=== PATIENT | male | born 1980 | race Caucasian/White ===

== ENCOUNTER 2023-02-10 09:14 | Day surgery (SDC) | payer OTHER ==
[2023-02-10] VITALS (10 sets, daily range): BP systolic 130–142; BP diastolic 84–96
[~2023-02-10] VITALS: Ht 180.3 cm; Wt 92.1 kg
[2023-02-10] MEDS: cefazolin 2gm/D5W 100mL 100 ML IV ONE (07:47)
[~2023-02-10 09:14] MED LIST: NO HOME MEDS
[2023-02-10] MEDS: famotidine 20mg tablet PO ONE (10:54)
[2023-02-10] MEDS: ringers solution, lacted 1,000 ML IV SCH (10:54)
[2023-02-10 11:06] LABS: ALANINE AMINOTRANSFERASE 58 U/L (12-78); ALBUMIN/GLOBULIN RATIO 1.2 (1.1-1.5); ALKALINE PHOSPHATASE 59 IU/L (46-116); ANION GAP 8 (8-16); ASPARTATE AMINO TRANSFERASE 28 U/L (10-37); BILIRUBIN,TOTAL 0.8 MG/DL (0.1-1.0); BLOOD UREA NITROGEN 14 MG/DL (7-18); BUN/CREATININE RATIO 14.1 (10.0-20.0); CALCIUM 8.9 MG/DL (8.5-10.1); CHLORIDE 106 MMOL/L (99-107); CREATININE 0.99 MG/DL (0.60-1.10); GLUCOSE 109 MG/DL (70-104); POTASSIUM 3.9 MMOL/L (3.5-5.1); SODIUM 140 MMOL/L (135-145); TOTAL CARBON DIOXIDE 25.7 MMOL/L (24-32); TOTAL PROTEIN 7.4 G/DL (6.4-8.2); eGFR 84 ML/MIN
[2023-02-10 11:08] LABS: BASOPHILS # (AUTO) 0.1 X10'3 (0-0.2); BASOPHILS % (AUTO) 0.8 % (0-1); EOSINOPHILS # (AUTO) 0.3 X10'3 (0-0.9); EOSINOPHILS % (AUTO) 3.5 % (0-6); HEMOGLOBIN 16.3 g/dl (14.0-17.9); LYMPHOCYTES # (AUTO) 1.6 X10'3 (1.1-4.8); MEAN CORPUSCULAR HEMOGLOBIN 32.5 PG (27.0-31.0); MEAN CORPUSCULAR HGB CONC 34.7 g/dL (33.0-36.5); MEAN CORPUSCULAR VOLUME 93.5 FL (78-98); MEAN PLATELET VOLUME 8.1 FL (7.4-10.4); MONOCYTES # (AUTO) 0.9 X10'3 (0-0.9); MONOCYTES % (AUTO) 10.6 % (2-12); NEUTROPHILS # (AUTO) 5.3 X10'3 (1.8-7.7); NEUTROPHILS % (AUTO) 65.1 % (42-75); PLATELET COUNT 218 X10'3 (140-440); RED BLOOD COUNT 5.02 X10'6 (4.70-6.10); RED CELL DISTRIBUTION WIDTH 12.8 % (11.5-14.5); WHITE BLOOD COUNT 8.1 X10'3 (4.5-11.0)
[2023-02-10] MEDS: BUPIVACAINE liposomal/PF 13.3 MG/ML vial IM ONE (12:20)
[2023-02-10] MEDS: BUPIVAcaine/PF 2.5 mg/ml (0.25%) 30ml vial IJ ONE ×2 (12:20)
[2023-02-10] MEDS: LIDOcaine 1% 30ml preserv. free vial IJ ONE (12:20)
[2023-02-10] MEDS ORDERED: LIDOcaine 1% 30ml preserv. free vial ONE (12:25)
[2023-02-10] MEDS ORDERED: BUPIVAcaine/PF 2.5 mg/ml (0.25%) 30ml vial ONE ×2 (12:25→12:30)
[2023-02-10] MEDS ORDERED: BUPIVACAINE liposomal/PF 13.3 MG/ML vial IM ONE ×2 (12:30→12:32)
[2023-02-10] MEDS ORDERED: sevoflurane 250ml liquid IH ONE (12:39)
[2023-02-10] MEDS ORDERED: labetalol 20mg/4ml (5mg/ml) syringe IV ONE ×2 (12:39→13:36)
[2023-02-10] MEDS ORDERED: rocuronium 10mg/ml inj IV ONE (12:39)
[2023-02-10] MEDS ORDERED: midazolam 1 mg/ML 2ml injection ONE (12:42)
[2023-02-10] MEDS ORDERED: fentaNYL/PF 50MCG/1 ML 2ML syringe ONE ×2 (12:42→12:53)
[2023-02-10] MEDS ORDERED: neostigmine methylsulfate 1 MG/ML 10ml vial ONE (13:36)
[2023-02-10] MEDS ORDERED: ondansetron/PF 4mg/2ml inj ONE (13:36)
[2023-02-10] MEDS ORDERED: acetaminophen 1,000mg/100ml IV 100 ML IV ONE (13:36)
[2023-02-10] MEDS ORDERED: glycopyrrolate 0.2mg/ml inj ONE (13:36)
[2023-02-10] MEDS ORDERED: dexamethasone sod phosphate 4mg/ml inj. ONE (13:36)
[2023-02-10] MEDS ORDERED: LIDOcaine 2% (20mg/ml) 5ml vial ONE (13:36)
[2023-02-10] MEDS ORDERED: propofol inj 20 ML IV ONE (13:36)
--- NOTE | 2023-02-10 13:40 | NUR ---
Received from OR via BED, accompanied by Anesthesiologist and report given by Anesthesiologist. PATIENT WAKING UP, NO S/S OF PAIN, V/S WNL, SCD ON, 20G TO LUE, ABDOMEN LAP SITE CLEAN W/ NO S/S OF COMPLICATIONS
[2023-02-10] MEDS: oxyCODONE/APAP 5-325mg tablet PO PRN (14:17)
--- NOTE | 2023-02-10 14:50 | NUR ---
[id number]&[id number], DENIES PAIN, V/S WNL, SCD OFF, 20G TO LUE D/C, ABDOMEN LAP SITE CLEAN W/ NO S/S OF COMPLICATIONS. I HAVE REVIEWED D/C INSTRUCTIONS WITH PATIENT and they have verbalized understanding patient d/c home with all belongings and family gave transport home.
== END 2023-02-10 14:50 | disposition home or self-care (01) ==
LOC: PAS 09:14
PROVIDERS: ATTEND Surgery
DX: K42.9 Umbilical hernia without obstruction or gangrene (principal); Z79.899 Other long term (current) drug therapy; Z98.890 Other specified postprocedural states; F17.210 Nicotine dependence, cigarettes, uncomplicated
CPT/HCPCS: 36415; 49591; 80053; 82948; 85025; 93005; C9290; J0131; J0690; J1100; J2250; J2405; J2704; J2710; J3010; J3490; J7030; J7120; Z7506; Z7512; A4215; A4618